=== PATIENT | female | born 1980 | race Hispanic/Latino ===

== ENCOUNTER 2017-11-23 16:22 | Emergency (ER) | payer OTHER ==
[2017-11-23 16:28] VITALS: BP 165/100; PULSE 120; RESP 16; TEMP 98; O2SAT 100
--- NOTE | 2017-11-23 17:33 | ED PDOC ---
HPI: Back Time Seen by Provider: 11/23/17 16:31 Chief Complaint (Nursing): Back Pain Chief Complaint (Provider): Back pain History Per: Patient History/Exam Limitations: no limitations Additional Complaint(s): Patient is a 37 y/o female with no significant past medical history presenting to the emergency department for traumatic back pain since yesterday. Reports that while she was at the supermarket, a display case of candy fell onto her back as she was bent over her shopping cart. She started feeling pain afterwards which has not resolved. Notes that she did not take any medication for the pain. Denies any other complaints. Of note, patient has had an anaphylaxis reaction to penicillin in the past. Thus , she is concerned about taking oral medications. PCP: none provided Past Medical History Reviewed: Historical Data, Nursing Documentation, Vital Signs Vital Signs: Last Vital Signs Temp 98.0 F 11/23/17 16:27 Pulse 120 H 11/23/17 16:27 Resp 16 11/23/17 16:27 BP 165/100 H 11/23/17 16:27 Pulse Ox 100 11/23/17 16:27 - Medical History PMH: Anxiety, Fractures (RIGHT WRIST), Hypothyroidism - Surgical History Surgical History: No Surg Hx - Family History Family History: States: No Known Family Hx - Allergies Allergies/Adverse Reactions: Allergies Allergy/AdvReac Type Severity Reaction Status Date / Time Penicillins Allergy SHORTNESS Verified 11/23/17 16:29 OF BREATH Review of Systems ROS Statement: Except As Marked, All Systems Reviewed And Found Negative Musculoskeletal: Positive for: Back Pain Physical Exam - Reviewed Nursing Documentation Reviewed: Yes Vital Signs Reviewed: Yes - Physical Exam Appears: Positive for: Well, Non-toxic, No Acute Distress Head Exam: Positive for: ATRAUMATIC, NORMAL INSPECTION, NORMOCEPHALIC Skin: Positive for: Normal Color, Warm, Dry Eye Exam: Positive for: Normal appearance Neck: Positive for: Normal Cardiovascular/Chest: Positive for: Regular Rate, Rhythm Respiratory: Negative for: Accessory Muscle Use, Respiratory Distress Back: Positive for: Vertebral Tenderness (L-spine tenderness). Negative for: Other (abrasions or ecchymosis) Extremity: Positive for: Normal ROM. Negative for: Pedal Edema Neurologic/Psych: Positive for: Alert, Oriented (x3) - ECG O2 Sat by Pulse Oximetry: 100 (RA) Pulse Ox Interpretation: Normal Medical Decision Making Medical Decision Making: Time: 16:54 Initial impression: Back pain Initial plan: ED Urine LS Spine X-ray Patient has declined pain medication at this time. X-ray without acute fracture or dislocation. ~ Scribe Attestation: Documented by Namrata Menjivar, acting as a scribe for CARRIE Olson. Provider Scribe Attestation: All medical record entries made by the Scribe were at my direction and personally dictated by me. I have reviewed the chart and agree that the record accurately reflects my personal performance of the history, physical exam, medical decision making, and the department course for this patient. I have also personally directed, reviewed, and agree with the discharge instructions and disposition. Disposition - Clinical Impression Clinical Impression: Acute back pain - Patient ED Disposition Is Patient to be Admitted: No Counseled Patient/Family Regarding: Diagnosis, Need For Followup - Disposition Disposition: Routine/Home Disposition Time: 18:17 Condition: GOOD Instructions: Acute Low Back Pain (ED) Forms: [employer]ool ([place]ori)
--- NOTE | 2017-11-23 19:33 | RAD ---
PROCEDURE: Radiographs of the Lumbar Spine. HISTORY: back pain COMPARISON: No prior. FINDINGS: BONES: Normal alignment. No listhesis. No fracture. DISC SPACES: Unremarkable. OTHER FINDINGS: None. IMPRESSION: Unremarkable radiographs of the lumbar spine. If symptoms persist or worsen follow-up MRI recommended.
== END 2017-11-23 18:20 | disposition home or self-care (01) ==
LOC: H.ER 16:22
DX: M54.5 Low back pain (principal); E03.9 Hypothyroidism, unspecified; F41.9 Anxiety disorder, unspecified; Z88.0 Allergy status to penicillin